=== PATIENT | male | born 1960 | race Caucasian/White ===

== ENCOUNTER 2023-09-22 07:08 | Emergency (ER) | payer SELFPAY ==
[~2023-09-22] VITALS: Ht 188 cm; Wt 147.4 kg
[2023-09-22 07:17] VITALS: BP 135/72; PULSE 84; RESP 16; TEMP 97.9; O2SAT 99
[2023-09-22] MEDS: CYCLOBENZAPRINE 10 MG TAB PO ONE (07:53)
[2023-09-22] MEDS: ACETAMINOPHEN EXTRA STRENGTH 500 MG TAB PO ONE (07:54)
[2023-09-22] MEDS: LIDOCAINE 5% 1 EA PATCH TP ONE (07:55)
[2023-09-22] MEDS: KETOROLAC 60 MG/2 ML VIAL IM ONE (07:56)
[2023-09-22] MEDS ORDERED: ACET-10509 PO (08:55)
[2023-09-22] MEDS ORDERED: IBUP-2218 PO (08:55)
[2023-09-22] MEDS ORDERED: LIDO1ADH54 TP (08:55)
[2023-09-22] MEDS ORDERED: CYCL-711 PO (08:55)
[2023-09-22 09:03] VITALS: BP 127/53; PULSE 79; RESP 13; TEMP 97.9; O2SAT 99
== END 2023-09-22 09:03 | disposition home or self-care (01) ==
LOC: MED 07:08
DX: M54.41 Lumbago with sciatica, right side (principal); G89.29 Other chronic pain; E66.9 Obesity, unspecified; E11.9 Type 2 diabetes mellitus without complications; I10 Essential (primary) hypertension; Z68.41 Body mass index [BMI] 40.0-44.9, adult; Z79.1 Long term (current) use of non-steroidal anti-inflammatories (NSAID); Z79.899 Other long term (current) drug therapy
CPT/HCPCS: 96372; 99284; J1885